=== PATIENT | male | born 1955 | race Two or more races ===

== ENCOUNTER 2020-02-01 07:32 | Emergency (ER) | payer SELFPAY ==
--- NOTE | 2020-02-01 08:28 | ER Document Report ---
ED General - General Chief Complaint: Leg Pain Stated Complaint: FALL/LEFT LEG PAIN Time Seen by Provider: 02/01/20 07:54 - HPI Notes: Chief complaint: Fall with subsequent pain lower back, left hip and left knee History of present illness: 64-year-old male on work assignment here temporarily from [facility] states that he accidentally fell yesterday while playing tennis after work. He has some soreness in his lower back his left hip and his left knee when he got home. He spoke with his doctor in [place] who provided him a prescription for some naproxen and some Flexeril. He is taken these overnight without relief and says he is now having pain in all these areas with weightbearing. He describes his pain 8/10 intensity. Past Medical History - General Information source: Patient - Social History Smoking Status: Unknown if Ever Smoked Frequency of alcohol use: Occasional Drug Abuse: None Lives with: Family Family History: Reviewed & Not Pertinent - Past Medical History Cardiac Medical History: Reports: Hx Hypertension Endocrine Medical History: Denies: Hx Diabetes Mellitus Type 1, Hx Diabetes Mellitus Type 2 Surgical Hx: Negative Review of Systems - Review of Systems Notes: Constitutional: Negative for fever. HENT: Negative for sore throat. Eyes: Negative for visual changes. Cardiovascular: Negative for chest pain. Respiratory: Negative for shortness of breath. Gastrointestinal: Negative for abdominal pain, vomiting or diarrhea. Genitourinary: Negative for dysuria. Musculoskeletal: As per HPI. Skin: Negative for rash. Neurological: Negative for headaches, weakness or numbness. 10 point ROS negative except as marked above and in HPI. Physical Exam - Vital signs Vitals: Temp Pulse Resp BP Pulse Ox 99.0 F 87 18 172/92 H 99 02/01/20 07:38 02/01/20 07:38 02/01/20 07:38 02/01/20 07:38 02/01/20 07:38 Interpretation: Hypertensive - Notes Notes: GENERAL: Mildly obese male of approximately stated age appearing in moderate pain. SKIN: No visible ecchymoses. Good turgor no rashes. HEAD: Normocephalic atraumatic. EYES: PERRLA. EOMI. Conjunctivae and sclerae clear. EARS: CANALS AND TMS CLEAR. NOSE: CLEAR. MOUTH: Moist mucosa. Good dentition. No stridor or edema. No drooling. NECK: Supple. No masses or thyromegaly. No adenopathy. Carotids 2+ without bruits. No JVD. BACK: Tenderness lumbar area without palpable crepitus or step-off. CHEST: Respirations unlabored. Breath sounds clear and symmetrical. HEART: Regular rhythm. No murmur gallop or rub. ABDOMEN: Mildly obese. Soft nontender without masses, organomegaly or rebound. Bowel sounds normally active. No bruits. GENITALIA: Deferred. EXTREMITIES: No shortening or abnormal rotation of left lower extremity. Patient is diffusely tender over the left knee without obvious effusion or swelling. No gross ligamentous instability. Pain with range of motion. Mildly tender lateral aspect of left hip joint. No edema. No calf tenderness. Cap refill less than 1.5 seconds. Dorsalis pedis and posterior tibial pulses 3+ and symmetrical. NEUROLOGICAL: GCS 15. Alert and oriented x3. Normal gait. Fluent speech. Cranial nerves II through XII intact. Sensorimotor and cerebellar normal. Normal tone. PSYCHIATRIC: Appropriate affect. Course - Re-evaluation Re-evalutation: 02/01/20 12:54 Plain films of the lumbar spine showed extensive degenerative changes but no fracture or subluxation. Films of the left hip and left knee were unremarkable. Patient achieved little relief of his discomfort with an injection of IM Toradol. On follow-up examination he clearly has a positive straight leg raising test on the left at 15 degrees. His deep tendon reflexes 1+ and symmetrical his distal sensation is intact. He is describing sharp burning pain emanating from his lower back and extending down the leg when he tries to bear weight or when he moves the leg. Clinically this is consistent with sciatica. I will give the patient oral steroids and have given him an injection of Dilaudid here. I will place him on some Percocet at home. He is able to ambulate at this point in a limited fashion using a cane. I refer him to a primary care doctor on outpatient basis and we will write him a work note for 3 days. Findings, clinical impression and plan of treatment have been discussed with patient/family. Understanding of current findings and recommendations has been acknowledged by them and there is agreement regarding disposition and follow-up. - Vital Signs Vital signs: Temp Pulse Resp BP Pulse Ox 99.0 F 87 18 172/92 H 99 02/01/20 07:38 02/01/20 07:38 02/01/20 07:38 02/01/20 07:38 02/01/20 07:38 - Laboratory Laboratory results interpreted by me: 02/01/20 11:10 POC Glucose 176 H Discharge - Discharge Clinical Impression: Sciatica Qualifiers: Laterality: left Qualified Code(s): M54.32 - Sciatica, left side Condition: Stable Disposition: HOME, SELF-CARE Additional Instructions: Sciatica Your symptoms suggest "sciatica." The pain of sciatica typically radiates down the leg. Numbness in the foot or calf may also occur. Sciatica is caused by irritation of the sciatic nerve or its branches. The irritation can be due to a herniated disk in the spine, swelling and inflammation in the muscles surrounding the sciatic nerve, or direct injury of the nerve itself. Most cases of sciatica will resolve with medical treatment. Bed rest is usually recommended initially. Surgery is only necessary when the condition will not improve with rest and antiinflammatory medication. Muscle relaxers are often given if muscle soreness is present. A CAT scan of the back may be performed if a herniated disk is suspected. Re-examination is necessary if you develop increasing numbness, localized weakness in the foot or ankle, or if the pain does not respond to rest. Take medications as prescribed. Limit walking and do not perform any bending, stooping or lifting until reevaluated by physician. You will be provided a work note for the next 3 days. You will be provided the name of the referral clinic/ for follow-up later this week. Prescriptions: Prednisone [Deltasone 20 mg Tablet] 2 tab PO DAILY 5 Days tablet Oxycodone HCl/Acetaminophen [Percocet 5-325 mg Tablet] 1 - 2 tab PO Q4H PRN #15 tablet PRN Reason: Referrals: [facility] [Provider Group] - Follow up as needed [facility] [Provider Group] - Follow up as needed
[2020-02-01] MEDS ORDERED: KETOROLAC TROMETHAMINE 60 MG/2 ML SDV IM ONE (08:37)
--- NOTE | 2020-02-01 10:16 | RADIOLOGY REPORT (SQ) ---
EXAM DESCRIPTION: HIP LEFT AP/LATERAL IMAGES COMPLETED DATE/TIME: 02/01/2020 9:43 am REASON FOR STUDY: pain COMPARISON: None. NUMBER OF VIEWS: Two views. TECHNIQUE: An AP view of the pelvis and a lateral frogleg view of the left hip were obtained. LIMITATIONS: None. FINDINGS: MINERALIZATION: Normal. LEFT HIP: No fracture or dislocation. RIGHT HIP: No fracture or dislocation. PUBIS AND ISCHIUM: The ilioischial and iliopectineal lines are intact. There is no diastasis of the pubic symphysis. PELVIS: No fracture. SACRUM: Intact. LOWER LUMBAR SPINE: No acute gross abnormality. SOFT TISSUES: No findings. OTHER: No other finding. IMPRESSION: No acute osseous abnormality of the left hip. TECHNICAL DOCUMENTATION: JOB ID: [id number] 2010 [employer]- All Rights Reserved Reading location - IP/workstation name: [email or web address]
--- NOTE | 2020-02-01 10:19 | RADIOLOGY REPORT (SQ) ---
EXAM DESCRIPTION: L SPINE WHOLE IMAGES COMPLETED DATE/TIME: 02/01/2020 9:43 am REASON FOR STUDY: pain COMPARISON: None. NUMBER OF VIEWS: Five views including obliques. TECHNIQUE: AP, lateral, oblique, and sacral radiographic images acquired of the lumbar spine. LIMITATIONS: None. FINDINGS: MINERALIZATION: Normal. SEGMENTATION: There are 5 lumbar-type vertebral bodies. There is no transitional segment at the lumb osacral junction. ALIGNMENT: There is straightening of the normal lordotic curvature of the cervical spine. VERTEBRAE: The lumbar vertebral body heights are preserved. There is no fracture. DISCS: The L3-L4, L4-5 and L5-S1 intervertebral disc spaces are narrowed ; at L3-L4 there are bridgin g anterolateral osteophytes. POSTERIOR ELEMENTS: Intact. There is no pars interarticularis defect. HARDWARE: None in the spine. PARASPINAL SOFT TISSUES: Normal. PELVIS: Intact. OTHER: Hypertrophy of the L5-S1 facet joints. IMPRESSION: No acute fracture or malalignment of the lumbar spine. TECHNICAL DOCUMENTATION: JOB ID: [id number] 2010 [employer]- All Rights Reserved Reading location - IP/workstation name: [email or web address]
--- NOTE | 2020-02-01 10:20 | RADIOLOGY REPORT (SQ) ---
EXAM DESCRIPTION: KNEE LEFT 2 VIEWS IMAGES COMPLETED DATE/TIME: 02/01/2020 10:03 am REASON FOR STUDY: pain COMPARISON: None. NUMBER OF VIEWS: Two views. TECHNIQUE: AP and lateral radiographic images acquired of the left knee. LIMITATIONS: None. FINDINGS: MINERALIZATION: Normal. BONES: No acute fracture or dislocation. JOINT: No effusion. The quadriceps and patellar tendon silhouettes are intact. SOFT TISSUES: No soft tissue swelling or radiopaque foreign body. OTHER: No other finding. IMPRESSION: No acute osseous abnormality of the left knee. TECHNICAL DOCUMENTATION: JOB ID: [id number] 2010 [employer]- All Rights Reserved Reading location - IP/workstation name: [email or web address]
[2020-02-01] MEDS ORDERED: HYDROMORPHONE HCL INJ/PF 2 MG/ML AMPULE IM ONE (10:57)
[2020-02-01] MEDS ORDERED: DEXAMETHASONE SOD PHOS INJ 10 MG/1 ML VIAL IM ONE (11:38)
[2020-02-01 14:35] VITALS: BP 120/74
== END 2020-02-01 14:35 | disposition home or self-care (01) ==
LOC: ER 07:32
DX: M47.26 Other spondylosis with radiculopathy, lumbar region (principal); M54.42 Lumbago with sciatica, left side; M25.552 Pain in left hip; M25.562 Pain in left knee; W19.XXXA Unspecified fall, initial encounter; Y93.73 Activity, racquet and hand sports; I10 Essential (primary) hypertension; E66.9 Obesity, unspecified
CPT/HCPCS: 99284; 96372; 82962; 73502; 73560; 72110; J1885; J1170

== ENCOUNTER 2020-02-03 00:57 | Emergency (ER) | payer SELFPAY ==
[2020-02-03 01:07] VITALS: BP 180/87
== END 2020-02-03 03:00 | disposition left against medical advice (07) ==
LOC: ER 00:57
DX: Z53.21 Procedure and treatment not carried out due to patient leaving prior to being seen by health care provider (principal)

== ENCOUNTER 2020-02-13 17:53 | Emergency (ER) | payer OTHER ==
[2020-02-13 18:01] VITALS: BP 154/99
[2020-02-13] MEDS ORDERED: OXYCODONE-ACETAMINOPHEN 5-325 MG TABLET PO ONE (18:33)
--- NOTE | 2020-02-13 18:34 | ER Document Report ---
ED Medical Screen (RME) - General Chief Complaint: Knee Pain Stated Complaint: LEFT KNEE PAIN Time Seen by Provider: 02/13/20 18:23 Mode of Arrival: Medic Information source: Patient Notes: Patient presents with a two-week history of left knee and thigh pain. Patient states that he fell 2 weeks ago was seen here and had x-ray imaging. Patient states he has had persistent knee and thigh pain that is causing him to have difficulty ambulating. Patient also reports decreased appetite. Patient denies any fever. Patient denies any new injury. Patient is requesting an MRI of the knee. I have greeted and performed a rapid initial assessment of this patient. A comprehensive ED assessment and evaluation of the patient, analysis of test results and completion of the medical decision making process will be conducted by additional ED providers. - Related Data Allergies/Adverse Reactions: No Known Allergies Allergy (Verified 02/13/20 18:22) Past Medical History - Past Medical History Cardiac Medical History: Reports: Hx Hypertension Endocrine Medical History: Denies: Hx Diabetes Mellitus Type 1, Hx Diabetes Mellitus Type 2 Physical Exam - Vital signs Vitals: Temp Pulse Resp BP Pulse Ox 98.3 F 97 20 154/99 H 99 02/13/20 17:57 02/13/20 17:57 02/13/20 17:57 02/13/20 17:57 02/13/20 17:57 - General General appearance: Appears well, Alert Notes: Left knee, left anterior thigh tenderness Course - Vital Signs Vital signs: Temp Pulse Resp BP Pulse Ox 98.3 F 97 20 154/99 H 99 02/13/20 17:57 02/13/20 17:57 02/13/20 17:57 02/13/20 17:57 02/13/20 17:57
--- NOTE | 2020-02-13 20:34 | ER Document Report ---
ED Extremity Problem, Lower - General Chief Complaint: Thigh Pain Stated Complaint: LEFT KNEE PAIN Time Seen by Provider: 02/13/20 18:23 Primary Care Provider: IDALMIS DUMAS DO [ACTIVE STAFF] - Follow up as needed Mode of Arrival: Ambulatory Notes: Patient is a 64-year-old male who returns emergency room complaining of left knee pain. Patient was seen here on 02/01/2020 after sustaining a fall while playing tennis. He had x-rays done here of the back and knee and thigh area as well as hip that all were negative. Patient was sent out on pain medications and was supposed to follow-up outpatient with a primary care provider however patient is from [place] and is down here on temporary work. Since leaving here he has not followed up with an orthopedist. His pain he states is getting worse and is having difficulty ambulating without left knee. [facility]. He denies any new traumatic events. He states that it is very painful for him ambulate with his knee and moderately swollen. He has gone to the walk-in clinic where they did do the lab work and re-x-rayed the same area again to find the x-ray negative. He brings his papers in showing this. TRAVEL OUTSIDE OF THE [place] IN LAST 30 DAYS: No - HPI Patient complains to provider of: Injury, Pain, Swelling Location: Knee Occurred: Other - 2 weeks ago Where: Outdoors, Public place Onset/Duration: Persistent, Worse Quality of pain: Achy, Stabbing, Throbbing Severity: Moderate Pain Level: 3 Context: Wearing shoes Associated symptoms: Other - Difficulty bearing weight Exacerbated by: Movement, Walking Relieved by: Nothing - Related Data Allergies/Adverse Reactions: No Known Allergies Allergy (Verified 02/13/20 18:22) Past Medical History - General Information source: Patient - Social History Smoking Status: Former Smoker Cigarette use (# per day): No Chew tobacco use (# tins/day): No Smoking Education Provided: No Frequency of alcohol use: None Drug Abuse: None Lives with: Alone Family History: Reviewed & Not Pertinent Patient has homicidal ideation: No - Past Medical History Cardiac Medical History: Reports: Hx Hypertension Endocrine Medical History: Denies: Hx Diabetes Mellitus Type 1, Hx Diabetes Mellitus Type 2 Review of Systems - Review of Systems Constitutional: No symptoms reported EENT: No symptoms reported Cardiovascular: No symptoms reported Respiratory: No symptoms reported Gastrointestinal: No symptoms reported Genitourinary: No symptoms reported Male Genitourinary: No symptoms reported Musculoskeletal: See HPI, Joint pain, Joint swelling Skin: No symptoms reported Hematologic/Lymphatic: No symptoms reported Neurological/Psychological: No symptoms reported -: Yes All other systems reviewed and negative Physical Exam - Vital signs Vitals: Temp Pulse Resp BP Pulse Ox 98.3 F 97 20 154/99 H 99 02/13/20 17:57 02/13/20 17:57 02/13/20 17:57 02/13/20 17:57 02/13/20 17:57 Interpretation: Hypertensive - Notes Notes: PHYSICAL EXAMINATION: GENERAL: Well-appearing, well-nourished and in no acute distress. HEAD: Atraumatic, normocephalic. NECK: Normal range of motion, supple without lymphadenopathy LUNGS: Breath sounds clear to auscultation bilaterally and equal. No wheezes rales or rhonchi. HEART: Regular rate and rhythm without murmurs Musculoskeletal: Examination patient's her concern is his left knee. In comparison to the right knee there is some slight swelling on the anterior portion of the knee superiorly to the patella. Mild tenderness to palpation of the same area. Further evaluation does not show any signs of laxity in any direction and the anterior drawer is negative. Patient has near full extension and flexion of the knee in a sitting position. Has some decreased strength ag ainst resistance with kick out. Vascular examination is normal. He has good cap refill in nailbeds of the toes of the left foot. He has good popliteal pulses well. Slight circumferential swelling around the calf is noted and ankle. But there is no vascular issues. NEUROLOGICAL: . Normal speech, normal gait. Normal sensory, motor exams PSYCH: Normal mood, normal affect. SKIN: Warm, Dry, normal turgor, no rashes or lesions noted. Course - Re-evaluation Re-evalutation: 02/13/20 22:25 Patient's DVT study was ordered in triage was negative for any acute findings. Given that he has had x-rays here and then a week later at outpatient clinic and they were negative no reason to repeat those now. I had a long discussion with the patient I will give him a follow-up appointment or orthopedic physician he can contact tomorrow to see if he can accommodate him. Meantime we will place him in a knee immobilizer. - Vital Signs Vital signs: Temp Pulse Resp BP Pulse Ox 98.3 F 97 20 154/99 H 99 02/13/20 17:57 02/13/20 17:57 02/13/20 17:57 02/13/20 17:57 02/13/20 17:57 Procedures - Immobilization Left Knee Time completed: 22:28 Immobilizer type: Knee immobilizer Performed by: RN, PCT Post-Proc Neuro Vasc Exam: Normal Alignment checked and good: Yes Discharge - Discharge Clinical Impression: Internal derangement of left knee Condition: Stable Disposition: HOME, SELF-CARE Instructions: Suspected Internal Knee Injury ([facility]), Knee Immobilizing Splint ([facility]), Sprained Knee ([facility]) Additional Instructions: As we discussed use the knee immobilizer and taking follow-up with orthopedist. You can ice the knee down 3 times a day. I am giving the name the orthopedic on-call you contact his office tomorrow morning to see if they can accommodate you. Forms: Elevated Blood Pressure, Return to Work Referrals: IDALMIS DUMAS, [ACTIVE STAFF] - Follow up as needed
--- NOTE | 2020-02-13 22:27 | RADIOLOGY REPORT (SQ) ---
EXAM DESCRIPTION: ULTRASOUND- bilateral lower extremity venous Doppler ultrasound CLINICAL HISTORY: Pain COMPARISON: None available TECHNIQUE: Mace scale, color and Doppler sonographic evaluation of the bilateral lower extremity was performed. FINDINGS: There is no evidence of acute/chronic deep venous thrombosis in the bilateral common femoral through proximal calf veins, including the popliteal, posterior tibial veins and bilateral greater saphenous vein/common femoral vein junction. Normal color/phasic flow, augmentation, compressibility and lack of filling defects, is demonstrated in these visualized vessels. IMPRESSION: Negative for deep vein thrombosis in the evaluated bilateral lower extremity deep venous system.
== END 2020-02-13 23:27 | disposition home or self-care (01) ==
LOC: ER 17:53
DX: M23.92 Unspecified internal derangement of left knee (principal); M25.562 Pain in left knee; M79.89 Other specified soft tissue disorders; W19.XXXA Unspecified fall, initial encounter; Y93.73 Activity, racquet and hand sports; Z87.891 Personal history of nicotine dependence; I10 Essential (primary) hypertension
CPT/HCPCS: 93971; 99284

== ENCOUNTER → 2020-02-16 | Outpatient (CLI) | payer OTHER ==
--- NOTE | 2020-02-16 14:00 | RADIOLOGY REPORT (SQ) ---
EXAM DESCRIPTION: MRI LUMBAR SPINE WITHOUT IMAGES COMPLETED DATE/TIME: 02/16/2020 10:17 am REASON FOR STUDY: M54.16 RADICULOPATHY, LUMBAR REGION M54.16 RADICULOPATHY, LUMBAR REGION COMPARISON: None. TECHNIQUE: Sagittal and Axial imaging includes T1, T2, STIR and gradient echo sequences. Coronal T2/ HASTE imaging. LIMITATIONS: Evaluation is limited due to patient motion artifact. FINDINGS: VISUALIZED UPPER ABDOMEN: Limited evaluation. SEGMENTATION: There are 5 lumbar-type vertebral bodies. There is no transitional segment at the lumb osacral junction. ALIGNMENT: No scoliotic curvature or spondylolisthesis VERTEBRAE: Intact. BONE MARROW: No focal marrow signal abnormality. DISC SIGNAL: The L3-L4 and L4-L5 intervertebral discs are narrowed and desiccated. POSTERIOR ELEMENTS: Intact. HARDWARE: None in the spine. CORD AND CONUS: The conus medullaris terminates at the level of L1 and it is normal in caliber and si gnal intensity. SOFT TISSUES: No abnormality. L1-L2: No spinal or foraminal stenosis. L2-L3: No spinal or foraminal stenosis. L3-L4: Broad-based disc bulge that encroaches on the inferior aspect of the neuroforamina without alejandra arent mass effect upon the nerve roots or thecal sac. L4-L5: Broad-based disc bulge eccentric to the left that encroaches upon the ipsilateral lateral rece ss and inferior aspect of the neuroforamen and results in at a minimum moderate stenosis of the left neuroforamen. L5-S1: Disc protrusion eccentric to the left that abuts the ventral aspect of the thecal sac. And hy pertrophy of the the set joints resulting in moderate to severe right and moderate left foraminal dima nosis. LOWER THORACIC: No stenosis. SACRUM: Intact. OTHER: No other findings. IMPRESSION: Limited MRI of the lumbar spine due to patient motion artifact that persisted on repeate d sequences. At L4-L5 there is a broad-based disc bulge eccentric to the left that encroaches upon t he ipsilateral lateral recess and inferior aspect of the neuroforamen. The disc bulge could exert ma ss effect upon the intraforaminal left L4 and intrathecal left L5 nerve roots. TECHNICAL DOCUMENTATION: JOB ID: [id number] 2010 [employer]- All Rights Reserved Reading location - IP/workstation name: [email or web address]
== END ==
LOC: RAD 08:57
PROVIDERS: ATTEND Orthopaedic Surgery
DX: M51.17 Intervertebral disc disorders with radiculopathy, lumbosacral region (principal)
CPT/HCPCS: 72148

== ENCOUNTER 2020-03-19 16:22 | Emergency (ER) | payer OTHER ==
--- NOTE | 2020-03-19 16:50 | ER Document Report ---
ED Medical Screen (RME) - General Chief Complaint: Blood Pressure Problem Stated Complaint: BLURRED VISION, DIZZINESS Time Seen by Provider: 03/19/20 16:42 Primary Care Provider: XAVI WONG JR, DO [Primary Care Provider] - Follow up as needed Mode of Arrival: Wheelchair Information source: Patient Notes: 64-year-old male presented to ED for complaint of blurry vision for the last 2 days. He states he has been seen in the emergency room multiple times for pain in his left knee and left leg. He states that one time he was told he had a fractured knee and then he was told that he had bulging disc and then on 07 March he had an injection in his back of steroids. He states he he went to the urgent care on Friday and they did an Accu-Chek it was 167 they gave him some insulin it went down to 120 and then when he got home it was 157 at 8 PM. He states this morning his blood sugar was 67 but his Accu-Chek is 70 in the emergency room. He states he has been on multiple pain medications since January when he was in here multiple times. He states he has been on steroid medications and he does have diabetes. His history of events is very confusing. He states he can see some but it is so blurry that he cannot read any time I have greeted and performed a rapid initial assessment of this patient. A comprehensive ED assessment and evaluation of the patient, analysis of test results and completion of medical decision making process will be conducted by an additional ED providers. TRAVEL OUTSIDE OF THE [place] IN LAST 30 DAYS: No - Related Data Allergies/Adverse Reactions: No Known Allergies Allergy (Verified 02/13/20 18:22) Past Medical History - Past Medical History Cardiac Medical History: Reports: Hx Hypertension Endocrine Medical History: Denies: Hx Diabetes Mellitus Type 1, Hx Diabetes Mellitus Type 2 Physical Exam - Vital signs Vitals: Temp Pulse Resp BP Pulse Ox 98.8 F 96 18 108/66 100 03/19/20 16:31 03/19/20 16:31 03/19/20 16:31 03/19/20 16:31 03/19/20 16:31 Course - Vital Signs Vital signs: Temp Pulse Resp BP Pulse Ox 98.8 F 96 18 108/66 100 03/19/20 16:31 03/19/20 16:31 03/19/20 16:31 03/19/20 16:31 03/19/20 16:31 Doctor's Discharge - Discharge Referrals: XAVI WONG JR, DO [Primary Care Provider] - Follow up as needed
[2020-03-19 17:22] LABS: ABSOLUTE EOSINOPHILS # (AUTO) 0.3 10^3/uL (0.0-0.6); ABSOLUTE LYMPHOCYTES (AUTO) 1.8 10^3/uL (0.5-4.7); ABSOLUTE MONOCYTES (AUTO) 0.6 10^3/uL (0.1-1.4); ABSOLUTE NEUT (AUTO) 6.1 10^3/uL (1.7-8.2); BASOPHILS % (AUTO) 0.3 % (0-2); EOSINOPHILS % (AUTO) 3.7 % (0-6); HEMATOCRIT 37.8 % (37.9-51.0); HEMOGLOBIN 12.9 g/dL (13.5-17.0); LYMPHOCYTES % (AUTO) 20.6 % (13-45); MEAN CORPUSCULAR HEMOGLOBIN 28.1 pg (27.0-33.4); MEAN CORPUSCULAR HGB CONC 34.1 g/dL (32.0-36.0); MEAN CORPUSCULAR VOLUME 83 fl (80-97); MONOCYTES % (AUTO) 6.8 % (3-13); PLATELET COUNT 151 10^3/uL (150-450); RED BLOOD COUNT 4.57 10^6/uL (4.35-5.55); RED CELL DISTRIBUTION WIDTH 13.9 % (11.5-14.0); SEGMENTED NEUTROPHILS % (AUTO) 68.6 % (42-78); TOTAL CELLS COUNTED % (AUTO) 100 %; WHITE BLOOD COUNT 8.9 10^3/uL (4.0-10.5)
--- NOTE | 2020-03-19 17:27 | RADIOLOGY REPORT (SQ) ---
EXAM DESCRIPTION: CT HEAD WITHOUT IMAGES COMPLETED DATE/TIME: 03/19/2020 5:20 pm REASON FOR STUDY: bed 11- blurred vision per gamez COMPARISON: None. TECHNIQUE: Axial images acquired through the brain without intravenous contrast. Images reviewed wi th bone, brain and subdural windows. Additional sagittal and coronal reconstructions were generated. Images stored on PACS. All CT scanners at this facility use dose modulation, iterative reconstruction, and/or weight based d osing when appropriate to reduce radiation dose to as low as reasonably achievable (ALARA). [facility]: Dose Right [facility]: CareDose [facility]: Dose Right [facility]: Teradose 4D [facility]: [employer] RADIATION DOSE: CT Rad equipment meets quality standard of care and radiation dose reduction techniq ues were employed. CTDIvol: 53.2 mGy. DLP: 964 mGy-cm. mGy. LIMITATIONS: None. FINDINGS: VENTRICLES: Prominent. CEREBRUM: No masses. No hemorrhage. No midline shift. Areas of low density in the white matter mos t likely due to chronic micro-vascular ischemic change. No evidence for acute infarction. CEREBELLUM: No masses. No hemorrhage. No alteration of density. No evidence for acute infarction. EXTRAAXIAL SPACES: Mild age-related involutional change. No fluid collections. No masses. ORBITS AND GLOBE: No intra- or extraconal masses. Normal contour of globe without masses. CALVARIUM: No fracture. PARANASAL SINUSES: No fluid or mucosal thickening. SOFT TISSUES: No mass or hematoma. OTHER: No other significant finding. IMPRESSION: MILD CHRONIC CHANGES OF ATROPHY AND MICROVASCULAR ISCHEMIA. NO ACUTE PROCESS. EVIDENCE OF ACUTE STROKE: NO. TECHNICAL DOCUMENTATION: JOB ID: [id number] Quality ID # [id number]: Final reports with documentation of one or more dose reduction techniques (e.g., Au tomated exposure control, adjustment of the mA and/or kV according to patient size, use of iterative reconstruction technique) 2010 [employer]- All Rights Reserved Reading location - IP/workstation name: [email or web address]
[2020-03-19 17:37] LABS: ALBUMIN 4.1 g/dL (3.5-5.0); ALKALINE PHOSPHATASE 69 U/L (38-126); ANION GAP 13 (5-19); ASPARTATE AMINO TRANSFERASE 24 U/L (17-59); BILIRUBIN,DIRECT 0.5 mg/dL (0.0-0.4); BILIRUBIN,TOTAL 0.7 mg/dL (0.2-1.3); BLOOD UREA NITROGEN 21 mg/dL (7-20); CALCIUM 9.4 mg/dL (8.4-10.2); CARBON DIOXIDE 24 mmol/L (22-30); CHLORIDE 99 mmol/L (98-107); POTASSIUM 4.9 mmol/L (3.6-5.0); TOTAL PROTEIN 6.9 g/dL (6.3-8.2)
[2020-03-19 17:44] LABS: GLUCOSE 68 mg/dL (75-110)
--- NOTE | 2020-03-19 19:03 | ER Document Report ---
ED General - General Chief Complaint: Blurred Vision Stated Complaint: BLURRED VISION, DIZZINESS Time Seen by Provider: 03/19/20 16:42 Primary Care Provider: XAVI WONG JR, DO [ACTIVE PROVISIONAL STAFF] - Follow up as needed Mode of Arrival: Wheelchair TRAVEL OUTSIDE OF THE [place] IN LAST 30 DAYS: No - HPI Notes: Patient is a 64-year-old male, who presents to the emergency department for evaluation of visual changes. He has had intermittent blurred vision, flashing lights in his eyes. He states that they started 48 hours ago when he was [place] home. He states that it seemed to improve. He states that it also seems to be exacerbated by looking at computer screens. He can see a large printing well, but has difficulty seeing smaller print. He states today he started having more flashing, more blurred vision. He went to an urgent care yesterday. They told him that his blood sugar was in the 160s. They changed his glucose control medications, he is now on 10 mg of glipizide. They had given him some insulin, discharge him when his blood sugar had come down into the 120s. He really did not have blurred vision when he walks into the office at that time. He states he has had some tingling sensations in the back of his head, but denies any difficulty speaking or swallowing. He is moving his arms and legs without difficulty. He reports he has had a dilated eye exam, believes it is been over a year since he has had one. The patient moved here from [place] in August, has not yet established with a primary care provider. - Related Data Allergies/Adverse Reactions: No Known Allergies Allergy (Verified 02/13/20 18:22) Home Medications: Losartan, clonidine, glipizide, metformin Past Medical History - General Information source: Patient - Social History Smoking Status: Never Smoker Chew tobacco use (# tins/day): No Frequency of alcohol use: None Drug Abuse: None Family History: Reviewed & Not Pertinent - Past Medical History Cardiac Medical History: Reports: Hx Hypertension Endocrine Medical History: Reports: Hx Diabetes Mellitus Type 2. Denies: Hx Diabetes Mellitus Type 1 Review of Systems - Review of Systems Constitutional: No symptoms reported EENT: See HPI Cardiovascular: No symptoms reported Respiratory: No symptoms reported Gastrointestinal: No symptoms reported Genitourinary: No symptoms reported Musculoskeletal: No symptoms reported Skin: No symptoms reported Neurological/Psychological: See HPI Physical Exam - Vital signs Vitals: Temp Pulse Resp BP Pulse Ox 98.8 F 96 18 108/66 100 03/19/20 16:31 10 16:31 03/19/20 16:31 03/19/20 16:31 03/19/20 16:31 - Notes Notes: Vital signs reviewed, please refer to chart. Head is normocephalic, atraumatic. Pupils equal round, reactive to light. Neck is supple without meningismus. Heart is regular rate and rhythm. Lungs are clear to auscultation bilaterally. Abdomen is soft, nontender, normoactive bowel sounds throughout. Extremities without cyanosis, clubbing. Posterior calves are nontender. Peripheral pulses are equal. Skin is warm and dry. Patient is awake, alert, oriented x3. Cranial nerves II - XII are grossly intact without focal neurological deficits. Strength is plus 5 out of 5 bilateral upper and lower extremities. Sensation is intact. Reflexes symmetrical. Intact [id number], rapid alternating movements, [id number]. Ultrasound examination of the eye is performed bilaterally. Optic nerve is visualized. There is not appear to be any significant retinal detachment. There is some thickening of the lens noted possibly consistent with early cataract formation. Course - Re-evaluation Re-evalutation: 03/19/20 19:04 Patient presents to the emergency department for evaluation. He had laboratory investigations as ordered through triage, as well as CT of the head. CT of the head was unremarkable. Patient's glucose was 68. He recently started 10 mg of glipizide. I will tell the patient to go back down to 5 mg of glipizide daily, as I am concerned about the possibility of him becoming hypoglycemic. The patient was amenable to this. Ultrasound of the eye failed to reveal any signs of clear retinal detachment, there is some thickening of the lens concerning for early cataract formation. Otherwise I did not appreciate any abnormalities. Still awaiting urinalysis and visual acuity. Patient is currently stable, we will continue to monitor. 03/19/20 22:31 Urinalysis failed to reveal any significant abnormalities. I do not have a clear etiology to this patient's blurred vision. He needs to be seen by an ornithology teacher. He also needs a primary care provider. In regards to his low blood sugar, I believe his glipizide dose was just increased. I am going to place him back on 5 mg, he can just break the tablets that he has in half. He understands this. Otherwise I will refer him to Dr. Pena, who is our on-call MD medicine physician, as well as Dr. Chopra/[facility]pe's practice, who I know have been accepting new patients recently. We will send on to ophthalmology. He is to return to the ED with worsening or new concerning symptoms of any sort. 03/19/20 22:33 Please note patient's visual acuity was reviewed, but this was without his glasses. - Vital Signs Vital signs: Temp Pulse Resp BP Pulse Ox 98.8 F 96 24 H 137/84 H 100 03/19/20 16:31 03/19/20 16:31 03/19/20 20:00 03/19/20 19:05 03/19/20 20:00 - Laboratory Result Diagrams: 03/19/20 16:58 03/19/20 16:58 Laboratory results interpreted by me: 03/19/20 03/19/20 03/19/20 16:58 16:58 20:20 Hgb 12.9 L Hct 37.8 L Sodium 136.1 L BUN 21 H Creatinine 1.93 H Est GFR ( Amer) 43 L Est GFR (MDRD) Non-Af 35 L Glucose 68 L Direct Bilirubin 0.5 H Urine Protein 30 H Urine Urobilinogen 4.0 H Discharge - Discharge Clinical Impression: Hypoglycemia, Blurred vision Condition: Stable Disposition: HOME, SELF-CARE Instructions: Hypoglycemia ([facility]) Additional Instructions: Your blood sugar was low today. You should decrease your glipizide to 5 mg, or half a tablet daily. Please continue the remainder of your medications as they have been prescribed. In regards to your vision, you need to see an ornithology teacher as soon as possible. Your referral list includes multiple ornithology teacher. Please contact them for an appointment as soon as possible. If you develop difficulty speaking or swallowing, worsening vision changes, or any other new or concerning symptoms, please return immediately to the emergency department for reevaluation. Referrals: XAVI WONG JR, DO [ACTIVE PROVISIONAL STAFF] - Follow up as needed CHRISTIAN PENA MD [ACTIVE STAFF] - Follow up as needed WALKER CHOPRA MD [ACTIVE STAFF] - Follow up as needed ELIAS CHAUHAN MD [ACTIVE STAFF] - Follow up as needed JANUARY ROYAL DO [ACTIVE STAFF] - Follow up as needed
[2020-03-19] MEDS ORDERED: NORMAL SALINE 500 ML IV ONE (19:33)
[2020-03-19 21:31] VITALS: BP 137/84
[2020-03-19 21:57] LABS: APPEARANCE,URINE SLIGHTLY-CLOUDY; BILIRUBIN,URINE NEGATIVE (NEGATIVE); COLOR,URINE YELLOW; GLUCOSE, URINE NEGATIVE (NEGATIVE); KETONES,URINE NEGATIVE (NEGATIVE); LEUKOCYTE ESTERASE,URINE NEGATIVE (NEGATIVE); NITRITE,URINE NEGATIVE (NEGATIVE); PROTEIN,URINE 30 mg/dL (NEGATIVE)
== END 2020-03-19 23:20 | disposition home or self-care (01) ==
LOC: ER 16:22
DX: E11.649 Type 2 diabetes mellitus with hypoglycemia without coma (principal); H53.8 Other visual disturbances; R20.2 Paresthesia of skin; I10 Essential (primary) hypertension; Z79.899 Other long term (current) drug therapy; Z79.84 Long term (current) use of oral hypoglycemic drugs
CPT/HCPCS: 99285; 36415; 82962; 85025; 80053; 81001; 70450; J7040